=== PATIENT | female | born 1995 | race Two or more races ===

== ENCOUNTER 2024-01-30 10:38 | Emergency (ER) | payer OTHER ==
[~2024-01-30] VITALS: Ht 162.6 cm; Wt 68.0 kg
[2024-01-30 11:57] VITALS: BP 117/70
[2024-01-30 11:58] VITALS: PULSE 81; RESP 16; O2SAT 100
== END 2024-01-30 12:50 | disposition home or self-care (01) ==
LOC: ER 10:38 → EEVIPCON 10:38 → ER 12:34
DX: T74.21XA Adult sexual abuse, confirmed, initial encounter (principal)